=== PATIENT | male | born 1985 | race Caucasian/White ===

== ENCOUNTER 2019-07-19 17:34 | Emergency (ER) | payer SELFPAY ==
[~2019-07-19] VITALS: Ht 190.5 cm; Wt 120.2 kg
[2019-07-19 18:36] VITALS: BP 159/85
[2019-07-19] MEDS ORDERED: LIDOCAINE HCL/MPF 1% 30 ML VIAL IJ ONE (19:27)
[2019-07-19] MEDS ORDERED: LIDOCAINE HCL/PF 1% 30 ML VIAL TP ONE (19:30)
== END 2019-07-19 21:10 | disposition home or self-care (01) ==
LOC: ER 17:40
DX: S63.287A Dislocation of proximal interphalangeal joint of left little finger, initial encounter (principal); Z60.2 Problems related to living alone; W01.0XXA Fall on same level from slipping, tripping and stumbling without subsequent striking against object, initial encounter; Y93.89 Activity, other specified; Y92.89 Other specified places as the place of occurrence of the external cause; Y99.0 Civilian activity done for income or pay
CPT/HCPCS: 26770; 73130 ×2; 99284; J3490 ×2